=== PATIENT | male | born 1980 | race Two or more races ===

== ENCOUNTER 2017-05-20 13:41 | Emergency (ER) | payer OTHER ==
--- NOTE | 2017-05-20 13:54 | EDPHY ---
H & P Stated Complaint: CP Time Seen by Provider: 05/20/17 13:53 - Personal History Current Tetanus/Diphtheria Vaccine: No Current Tetanus Diphtheria and Acellular Pertussis (TDAP): No - Medical/Surgical History Hx Asthma: No Hx Chronic Respiratory Disease: No Hx Diabetes: No Hx Cardiac Disease: Yes Hx Renal Disease: No Hx Cirrhosis: No Hx Alcoholism: No Hx HIV/AIDS: No Hx Splenectomy or Spleen Trauma: No Other PMH: HX: HTN, hyperlipidemia, ulcer - Social History Smoking Status: Never smoked Constitutional: Initial Vital Signs Temperature (C) 36.8 C 05/20/17 13:49 Heart Rate 84 05/20/17 13:49 Respiratory Rate 16 05/20/17 13:49 Blood Pressure 176/94 H 05/20/17 13:49 O2 Sat (%) 97 05/20/17 13:49 O2 Delivery Mode Room Air Allergies/Adverse Reactions: No Known Allergies Allergy (Unverified 05/20/17 13:47) Home Medications: Medication Instructions Recorded Omeprazole 06/19/13 Tricor 05/20/17 Medical Decision Making ED Course/Re-evaluation: CHIEF COMPLAINT: HISTORY OF PRESENT ILLNESS: must have 4 elements: Location, Quality, Severity , Duration, Timing, Context, Modifying Factors, Associated Signs and Symptoms REVIEW OF SYSTEMS: A 10 point review of systems was performed and is negative with the exception of the elements mentioned in the history of present illness. PHYSICAL EXAM: HR, BP, O2 Sat, RR. Temp noted General Appearance: Alert, well hydrated, appropriate, and non-toxic appearing. Head: Atraumatic without scalp tenderness or obvious injury Eyes: Pupils equal, round, reactive to light and accommodation, EOMI, no trauma , no injection. Ears: Clear bilaterally, no perforation, normal landmarks Nose: Atraumatic, no rhinorrhea, clear. Throat: There is no erythema or exudates, no lesions, normal tonsils, mucus membranes moist. Neck: Supple, 2+ carotid upstroke, nontender, no lymphadenopathy. Respiratory: No retractions, no distress, no wheezes, and no accessory muscle use. Lungs are clear to auscultation bilaterally. Cardiovascular: Regular rate and rhythm, no murmurs, rubs, or gallops. Bilateral carotid, radial, dorsalis pedis, and posterior tibial pulses intact. Good capillary refill all extremities. Gastrointestinal: Abdomen is soft, nontender, non-distended, no masses, no rebound, no guarding, no peritoneal signs. Musculoskeletal: Normal active ROM of all extremities, atraumatic. Neurological: Alert, appropriate, and interactive. The patient has normal DTRs and non-focal cranial nerves, motor, sensory, and cerebellar exam. Skin: No rashes, good turgor, no nodules on palpation. Past medical history: Past surgical history: Family history: Social history: DIAGNOSTICS/PROCEDURES/CRITICAL CARE TIME: DIFFERENTIAL DIAGNOSIS: MEDICAL DECISION MAKING:
--- NOTE | 2017-05-20 14:00 | EDPHY ---
H & P Stated Complaint: CP Time Seen by Provider: 05/20/17 13:53 HPI/ROS: CHIEF COMPLAINT: Chest pain x1 week HISTORY OF PRESENT ILLNESS: 37-year-old male, history of hypertension, hyperlipidemia, nonsmoker, no illicit drug use, no history of premature coronary artery disease, complaining of 1 week of intermittent left-sided chest pain, started sharp stabbing, nonpleuritic, better if he is ambulating. No radiation. Currently asymptomatic. No back pain. No peripheral edema. No malignancy history. PRIMARY CARE PROVIDER: [facility] REVIEW OF SYSTEMS: A ten point review of systems was performed and is negative with the exception of the items mentioned in the HPI PAST MEDICAL & SURGICAL HISTORY: No pertinent medical or surgical history SOCIAL HISTORY: Nonsmoker. No illicit drug use. No cocaine use. FAMILY HISTORY:no family history of premature coronary artery disease PHYSICAL EXAM (Prior to examination, patient consented to physical exam, hands were washed and my usual and customary physical exam procedures followed) 1) GENERAL: Well-developed, well-nourished, alert and oriented. Appears to be in no acute distress. 2) HEAD: Normocephalic, atraumatic 3) HEENT: Pupils equal, round, reactive to light bilaterally. Sclera anicteric. 4) NECK: Full range of motion, no meningeal signs. No carotid bruit 5) LUNGS: Clear auscultation bilaterally, no wheezes, no rhonchi, no retractions. 6) HEART: Regular rate and rhythm, no murmur, no heave, no gallop. 7) ABDOMEN: No guarding, no rebound, no focal tenderness, negative McBurney's, negative Mcdaniel's, negative Rovsing's, negative peritoneal sign, 8) MUSCULOSKELETAL: Moving all extremities, no focal areas of tenderness, no obvious trauma. No peripheral edema or discoloration. Negative Homans no palpable cord 9) BACK: No CVA tenderness, no midline vertebral tenderness, no fluctuance, no step-off, no obvious trauma, no visual or palpable abnormality. 10) SKIN: No rash, no petechiae. 11) Psychiatric: Patient is oriented X 3, there is no agitation. DIFFERENTIAL DIAGNOSIS: In no particular order, including but not limited to myocardial ischemia, pulmonary embolus, chest wall pain, pleural inflammation and pulmonary infectious causes. - Personal History Current Tetanus/Diphtheria Vaccine: No Current Tetanus Diphtheria and Acellular Pertussis (TDAP): No - Medical/Surgical History Hx Asthma: No Hx Chronic Respiratory Disease: No Hx Diabetes: No Hx Cardiac Disease: Yes Hx Renal Disease: No Hx Cirrhosis: No Hx Alcoholism: No Hx HIV/AIDS: No Hx Splenectomy or Spleen Trauma: No Other PMH: HX: HTN, hyperlipidemia, ulcer - Social History Smoking Status: Never smoked Constitutional: Initial Vital Signs Temperature (C) 36.8 C 05/20/17 13:49 Heart Rate 84 05/20/17 13:49 Respiratory Rate 16 05/20/17 13:49 Blood Pressure 176/94 H 05/20/17 13:49 O2 Sat (%) 97 05/20/17 13:49 O2 Delivery Mode Room Air Allergies/Adverse Reactions: No Known Allergies Allergy (Unverified 05/20/17 13:47) Home Medications: Medication Instructions Recorded Omeprazole 06/19/13 Tricor 05/20/17 Medical Decision Making - Diagnostics Imaging Results: Imaging Impressions Chest X-Ray 05/20/17 13:57 IMPRESSION: Normal chest x-ray. ED Course/Re-evaluation: 2:00 p.m.: Patient also seen and examined by secondary supervising physician Dr Escobar 3:36 p.m.: Re-evaluation, patient continues to appear well, asymptomatic while in the ER. Discussed his diagnostic results, normal chest x-ray, normal D-dimer , normal troponin, in presence of symptoms for few days, which I think adequately excludes acute SD and/or pulmonary embolus. Reviewed his chest x- ray showing no pneumothorax or infiltrate. Is also noted to have normal LFTs and lipase, doubt acute hepatitis and/or pancreatitis. Plan will be discharge. Discussed case with secondary supervising physician Dr. Robert Escobar in the ER who concurs with the assessment. - Data Points Laboratory Results: Laboratory Results 05/20/17 13:05 05/20/17 13:05 05/20/17 05/20/17 05/20/17 13:05 13:05 13:05 WBC 9.01 10^3/uL 10^3/uL (3.80-9.50) RBC 5.44 10^6/uL 10^6/uL (4.40-6.38) Hgb 17.1 g/dL g/dL (13.7-17.5) Hct 46.6 % % (40.0-51.0) MCV 85.7 fL fL (81.5-99.8) MCH 31.4 pg pg (27.9-34.1) MCHC 36.7 g/dL g/dL (32.4-36.7) RDW 12.6 % % (11.5-15.2) Plt Count 307 10^3/uL 10^3/uL (150-400) MPV 9.4 fL fL (8.7-11.7) Neut % (Auto) 57.9 % % (39.3-74.2) Lymph % (Auto) 32.6 % % (15.0-45.0) [place] % (Auto) 6.9 % % (4.5-13.0) Eos % (Auto) 1.3 % % (0.6-7.6) Baso % (Auto) 0.6 % % (0.3-1.7) Nucleat RBC Rel Count 0.0 % % (0.0-0.2) Absolute Neuts (auto) 5.22 10^3/uL 10^3/uL (1.70-6.50) Absolute Lymphs (auto) 2.94 10^3/uL 10^3/uL (1.00-3.00) Absolute Monos (auto) 0.62 10^3/uL 10^3/uL (0.30-0.80) Absolute Eos (auto) 0.12 10^3/uL 10^3/uL (0.03-0.40) Absolute Basos (auto) 0.05 10^3/uL 10^3/uL (0.02-0.10) Absolute Nucleated RBC 0.00 10^3/uL 10^3/uL (0-0.01) Immature Gran % 0.7 % % (0.0-1.1) Immature Gran # 0.06 10^3/uL 10^3/uL (0.00-0.10) D-Dimer < 0.27 ug/mLFEU ug/mLFEU (0.00-0.50) Sodium 139 mEq/L mEq/L (134-144) Potassium 4.3 mEq/L mEq/L (3.5-5.2) Chloride 103 mEq/L mEq/L (97-110) Carbon Dioxide 22 mEq/l mEq/l (22-31) Anion Gap 14 mEq/L mEq/L (8-16) BUN 22 mg/dL mg/dL (7-23) Creatinine 1.1 mg/dL mg/dL (0.7-1.3) Estimated GFR > 60 Glucose 99 mg/dL mg/dL (70-100) Calcium 10.2 mg/dL mg/dL (8.5-10.4) Total Bilirubin 0.5 mg/dL mg/dL (0.1-1.4) Conjugated Bilirubin 0.3 mg/dL mg/dL (0.0-0.5) Unconjugated Bilirubin 0.2 mg/dL mg/dL (0.0-1.1) AST 41 IU/L IU/L (17-59) ALT 72 IU/L IU/L (21-72) Alkaline Phosphatase 61 IU/L IU/L (38-126) Troponin I < 0.012 ng/mL ng/mL (0.000-0.034) Total Protein 7.9 g/dL g/dL (6.3-8.2) Albumin 4.8 g/dL g/dL (3.5-5.0) Lipase 70 IU/L IU/L (23-300) Departure - Departure Disposition: Home, Routine, Self-Care Clinical Impression: Chest pain Qualifiers: Chest pain type: other chest pain Qualified Code(s): R07.89 - Other chest pain ; R07.8 - Other chest pain Condition: Good Instructions: Chest Pain (ED) Additional Instructions: Seek medical attention if you develop new or worsening chest pain, if you develop new or worsening shortness of breath, or any other symptoms that concern you. Referrals: Kriss Martin MD [Primary Care Provider] - 2-3 days, call for appt.
--- NOTE | 2017-05-20 14:03 | CPEKG ---
Heart Rate: 77 RR Interval: 779 P-R Interval: 172 QRSD Interval: 90 QT Interval: 372 QTC Interval: 421 P [place]: 37 QRS [place]: 37 T Wave [place]: 27 EKG Severity - ABNORMAL ECG - EKG Impression: SINUS RHYTHM EKG Impression: PROBABLE INFERIOR INFARCT, OLD Electronically Signed By: Robert Escobar 20-May-2017 19:55:39
[2017-05-20 14:29] LABS: PLATELET COUNT 307 10^3/uL (150-400)
[2017-05-20 15:57] VITALS: BP 134/90; PULSE 80; RESP 17; TEMP 98.4; O2SAT 96
== END 2017-05-20 15:57 | disposition home or self-care (01) ==
DX: R07.89 Other chest pain (principal); I10 Essential (primary) hypertension

== ENCOUNTER 2017-10-24 00:05 | Emergency (ER) | payer SELFPAY ==
[2017-10-24] MEDS ORDERED: IBUPROFEN 600 MG TAB PO ONE (00:10)
--- NOTE | 2017-10-24 00:15 | EDPHY ---
H & P Stated Complaint: Chest pain X 1 hour Time Seen by Provider: 10/24/17 00:15 HPI/ROS: HPI CHIEF COMPLAINT: Chest pain HISTORY OF PRESENT ILLNESS: Patient very pleasant 37-year-old male, is otherwise healthy but does have a history of hypertension, hyperlipidemia he presents emergency room with chest pain he describes a burning sensation. This started 2 hr ago or around 10 o'clock at night. It is now 12 30 at night. Patient reports that he was playing cards with friends when he had suddenly developed this burning pain in left side of his chest. It did not really radiate anywhere. He has no shortness of breath. No pleuritic pain. He did eat very spicy tacos at 5:00 p.m. He had 3-4 beers this evening while playing cards. He denies any current abdominal pain. He states his chest pain has improved since arrival. He denies any shortness of breath or pleuritic pain, denies any vomiting. Current level pain 4/10. Past Medical History: Hypertension and hyperlipidemia Past Surgical History: Denies any recent surgery Social History: Denies tobacco use or illicit drugs. Occasional alcohol use. Did have alcohol this evening. Family History: Noncontributory ROS REVIEW OF SYSTEMS: A comprehensive 10 point review of systems is otherwise negative aside from elements mentioned in the history of present illness. Exam Constitutional appears well nontoxic no acute distress, triage nursing summary reviewed, vital signs reviewed, awake/alert. Eyes normal conjunctivae and sclera, EOMI, PERRLA. HENT normal inspection, atraumatic, moist mucus membranes, no epistaxis, neck supple/ no meningismus, no raccoon eyes. Respiratory clear to auscultation bilaterally, normal breath sounds, no respiratory distress, no wheezing. Cardiovascular rate normal, regular rhythm, no murmur, no edema, distal pulses normal. Gastrointestinal soft, non-tender, no rebound, no guarding, normal bowel sounds, no distension, no pulsatile mass. Genitourinary no CVA tenderness. Musculoskeletal no midline vertebral tenderness, full range of motion, no calf swelling, no tenderness of extremities, no meningismus, good pulses, neurovascularly intact. Skin pink, warm, & dry, no rash, skin atraumatic. Neurologic awake, alert and oriented x 3, AAOx3, moves all 4 extremities equally, motor intact, sensory intact, CN II-XII intact, normal cerebellar, normal vision, normal speech. Psychiatric normal mood/affect. Heme/Lymph/Immune no lymphadenopathy. Differential diagnosis includes but is not limited to: ACS, atypical chest pain , pneumothorax, pneumonia, pulmonary embolism, aortic dissection, congestive heart failure, tumor, musculoskeletal pain, esophageal pain, GERD, peptic ulcer disease, pancreatitis Medical Decision Making: Plan for this patient IV establishment blood draw, obtain EKG and full cardiac rehabilitation program director rule out acute coronary syndrome, check D- dimer and chest x-ray. GI cocktail to see if this improves his symptoms. Re-evaluation: EKG interpretation by me on record in [facility] system. Impression time of EKG 0012, this is sinus rhythm rate of [address] elevation no ST depression no significant T-wave abnormalities. Normal nonischemic EKG. When I compare this EKG to his old EKG dated 05/20/2017 is unchanged morphology. Q- waves seen on this EKG today in inferior leads are very similar to the Q-waves previously seen. These do not appear to be pathological. ED x-ray chest two view: Negative for acute cardiopulmonary disease. Image interpreted by myself. 0330: Patient re-evaluated this time resting comfortably has no chest pain. His discomfort improved with a GI cocktail. He has had a repeat EKG time a repeat EKG 3:24 a.m., this is sinus rhythm rate of 65 with no acute ischemia. No ST elevation no ST depression no significant T -wave abnormalities. Unremarkable EKG and appears very similar to his previous EKGs today as well as EKG 05/20/2017. 0538: Patient has been resting here comfortably in no acute distress. He has not had any for further chest pain. Feels much better after GI cocktail Patient had serial EKGs and serial troponins. 2 troponins were negative his EKG is nonischemic and unchanged. I think acute coronary syndrome is very unlikely given his age, cardiac risk factors, and 2 normal EKGs and 2 normal troponins. I believe this is more consistent with reflux in the setting of spicy tacos and alcohol. Improved with GI cocktail. I do recommend he refrain from eating and drinking spicy fatty greasy foods or alcohol. I do recommend additionally follows up with Cardiology for outpatient stress testing Additionally should return emergency room if develops worsening chest pain shortness of breath he understands. Source: Patient - Personal History Current Tetanus/Diphtheria Vaccine: Unsure Current Tetanus Diphtheria and Acellular Pertussis (TDAP): Unsure - Medical/Surgical History Hx Asthma: No Hx Chronic Respiratory Disease: No Hx Diabetes: No Hx Cardiac Disease: No Hx Renal Disease: No Hx Cirrhosis: No Hx Alcoholism: No Hx HIV/AIDS: No Hx Splenectomy or Spleen Trauma: No Other PMH: HX: HTN, hyperlipidemia, ulcer - Social History Smoking Status: Light smoker Constitutional: Initial Vital Signs Temperature (C) 36.7 C 10/24/17 00:07 Heart Rate 85 10/24/17 00:07 Respiratory Rate 16 10/24/17 00:07 Blood Pressure 152/110 H 10/24/17 00:07 O2 Sat (%) 97 10/24/17 00:07 O2 Delivery Mode Room Air Allergies/Adverse Reactions: No Known Allergies Allergy (Unverified 10/24/17 00:06) Home Medications: Medication Instructions Recorded Omeprazole 06/19/13 Tricor 05/20/17 Ranitidine HCl [Zantac] 150 mg PO DAILY #14 tablet 10/24/17 Medical Decision Making - Data Points Laboratory Results: Laboratory Results 10/24/17 00:25 10/24/17 00:25 10/24/17 10/24/17 10/24/17 03:25 00:25 00:25 WBC RBC Hgb Hct MCV MCH MCHC RDW Plt Count MPV Neut % (Auto) Lymph % (Auto) [place] % (Auto) Eos % (Auto) Baso % (Auto) Nucleat RBC Rel Count Absolute Neuts (auto) Absolute Lymphs (auto) Absolute Monos (auto) Absolute Eos (auto) Absolute Basos (auto) Absolute Nucleated RBC Immature Gran % Immature Gran # PT 12.9 SEC SEC (12.0-15.0) INR 0.95 (0.83-1.16) APTT 26.9 SEC SEC (23.0-38.0) D-Dimer < 0.27 ug/mLFEU ug/mLFEU (0.00-0.50) Sodium 142 mEq/L mEq/L (135-145) Potassium 4.0 mEq/L mEq/L (3.3-5.0) Chloride 103 mEq/L mEq/L (97-110) Carbon Dioxide 23 mEq/l mEq/l (22-31) Anion Gap 16 mEq/L mEq/L (8-16) BUN 18 mg/dL mg/dL (7-23) Creatinine 1.0 mg/dL mg/dL (0.7-1.3) Estimated GFR > 60 Glucose 113 mg/dL H mg/dL (70-100) Calcium 9.0 mg/dL mg/dL (8.5-10.4) Magnesium 1.8 mg/dL mg/dL (1.6-2.3) Total Bilirubin 0.5 mg/dL mg/dL (0.1-1.4) Conjugated Bilirubin 0.5 mg/dL mg/dL (0.0-0.5) Unconjugated Bilirubin 0.0 mg/dL mg/dL (0.0-1.1) AST 41 IU/L IU/L (17-59) ALT 71 IU/L IU/L (21-72) Alkaline Phosphatase 81 IU/L IU/L (38-126) Creatine Kinase 229 IU/L H IU/L (0-224) CK-MB (CK-2) Fraction 2.72 ng/mL ng/mL (0.00-3.19) CK-MB (CK-2) % 1.2 % % (0.0-4.0) Creatine Kinase Interp NEGATIVE (NEGATIVE) Troponin I < 0.012 ng/mL ng/mL < 0.012 ng/mL ng/mL (0.000-0.034) (0.000-0.034) NT-Pro-B Natriuret Pep 27 pg/mL pg/mL (0-125) Total Protein 7.7 g/dL g/dL (6.3-8.2) Albumin 4.5 g/dL g/dL (3.5-5.0) Lipase 55 IU/L IU/L (23-300) 10/24/17 00:25 WBC 10.01 10^3/uL H 10^3/uL (3.80-9.50) RBC 5.19 10^6/uL 10^6/uL (4.40-6.38) Hgb 15.9 g/dL g/dL (13.7-17.5) Hct 44.8 % % (40.0-51.0) MCV 86.3 fL fL (81.5-99.8) MCH 30.6 pg pg (27.9-34.1) MCHC 35.5 g/dL g/dL (32.4-36.7) RDW 12.8 % % (11.5-15.2) Plt Count 323 10^3/uL 10^3/uL (150-400) MPV 9.4 fL fL (8.7-11.7) Neut % (Auto) 46.8 % % (39.3-74.2) Lymph % (Auto) 39.9 % % (15.0-45.0) [place] % (Auto) 9.1 % % (4.5-13.0) Eos % (Auto) 2.8 % % (0.6-7.6) Baso % (Auto) 0.7 % % (0.3-1.7) Nucleat RBC Rel Count 0.0 % % (0.0-0.2) Absolute Neuts (auto) 4.69 10^3/uL 10^3/uL (1.70-6.50) Absolute Lymphs (auto) 3.99 10^3/uL H 10^3/uL (1.00-3.00) Absolute Monos (auto) 0.91 10^3/uL H 10^3/uL (0.30-0.80) Absolute Eos (auto) 0.28 10^3/uL 10^3/uL (0.03-0.40) Absolute Basos (auto) 0.07 10^3/uL 10^3/uL (0.02-0.10) Absolute Nucleated RBC 0.00 10^3/uL 10^3/uL (0-0.01) Immature Gran % 0.7 % % (0.0-1.1) Immature Gran # 0.07 10^3/uL 10^3/uL (0.00-0.10) PT INR APTT D-Dimer Sodium Potassium Chloride Carbon Dioxide Anion Gap BUN Creatinine Estimated GFR Glucose Calcium Magnesium Total Bilirubin Conjugated Bilirubin Unconjugated Bilirubin AST ALT Alkaline Phosphatase Creatine Kinase CK-MB (CK-2) Fraction CK-MB (CK-2) % Creatine Kinase Interp Troponin I NT-Pro-B Natriuret Pep Total Protein Albumin Lipase Medications Given: Discontinued Medications Al Hydroxide/Mg Hydroxide (Maalox Susp) 30 ml PO ONCE ONE Stop: 10/24/17 00:23 Last Admin: 10/24/17 00:40 Dose: 30 ml Hyoscyamine Sulfate (Levsin, Hyomax-Sl) 0.25 mg PO ONCE ONE Stop: 10/24/17 00:23 Last Admin: 10/24/17 00:40 Dose: 0.25 mg Sodium Chloride (Ns) 1,000 mls @ 0 mls/hr IV EDNOW ONE; Wide Open PRN Reason: Protocol Stop: 10/24/17 00:23 Last Admin: 10/24/17 00:40 Dose: 1,000 mls Lidocaine (Lidocaine 2% Viscous) 15 ml PO ONCE ONE Stop: 10/24/17 00:23 Last Admin: 10/24/17 00:40 Dose: 15 ml Departure - Departure Disposition: Home, Routine, Self-Care Clinical Impression: GERD (gastroesophageal reflux disease) Qualifiers: Esophagitis presence: with esophagitis Qualified Code(s): K21.0 - Gastro- esophageal reflux disease with esophagitis Condition: Good Instructions: Gastroesophageal Reflux Disease (ED) Additional Instructions: 1. Return emergency room if he develops any worsening symptoms includes worsening chest pain shortness of breath fever vomiting 2. Refrain from eating spicy fatty greasy foods for the next 2 weeks. 3. Ranitidine as prescribed. 4. Follow up with her primary care doctor. 5. Additionally you may want to schedule an outpatient stress test with Cardiology. Referrals: Kriss Martin MD [Primary Care Provider] - As per Instructions Rah Li MD [Medical Doctor] - As per Instructions Prescriptions: Ranitidine HCl [Zantac] 150 mg PO DAILY #14 tablet
--- NOTE | 2017-10-24 00:16 | CPEKG ---
Heart Rate: 81 RR Interval: 741 P-R Interval: 180 QRSD Interval: 86 QT Interval: 368 QTC Interval: 428 P [place]: 53 QRS [place]: 35 T Wave [place]: 25 EKG Severity - ABNORMAL ECG - EKG Impression: SINUS RHYTHM EKG Impression: INFERIOR INFARCT, OLD Electronically Signed By: Erik Mendez 24-Oct-2017 06:48:32
[2017-10-24] MEDS ORDERED: NS 1,000 ML IV ONE (00:22)
[2017-10-24] MEDS ORDERED: HYOSCYAMINE SULFATE 0.125 MG TAB PO ONE (00:22)
[2017-10-24] MEDS ORDERED: MAG HYDROX/AL HYDROX/SIMETH 30 ML UDCUP PO ONE (00:22)
[2017-10-24] MEDS ORDERED: LIDOCAINE 2% VISCOUS 15 ML UDCUP PO ONE (00:22)
[2017-10-24 00:45] LABS: PLATELET COUNT 323 10^3/uL (150-400)
[2017-10-24 00:54] LABS: CREATINE KINASE 229 IU/L (0-224)
[2017-10-24 01:29] LABS: INR 0.95 (0.83-1.16); PROTIME(PATIENT) 12.9 SEC (12.0-15.0)
--- NOTE | 2017-10-24 03:26 | CPEKG ---
Heart Rate: 65 RR Interval: 923 P-R Interval: 188 QRSD Interval: 86 QT Interval: 396 QTC Interval: 412 P [place]: 31 QRS [place]: 34 T Wave [place]: 32 EKG Severity - ABNORMAL ECG - EKG Impression: SINUS RHYTHM EKG Impression: INFERIOR INFARCT, OLD Electronically Signed By: Erik Mendez 24-Oct-2017 06:48:32
[2017-10-24 06:00] VITALS: BP 132/71
== END 2017-10-24 05:56 | disposition home or self-care (01) ==
DX: K21.0 Gastro-esophageal reflux disease with esophagitis (principal); E86.9 Volume depletion, unspecified; I10 Essential (primary) hypertension; F17.200 Nicotine dependence, unspecified, uncomplicated